=== PATIENT | male | born 1930 | race Caucasian/White ===

== ENCOUNTER 2017-09-29 18:12 | Emergency (ER) | payer OTHER ==
[~2017-09-29] VITALS: Ht 185.4 cm; Wt 82.6 kg
[~2017-09-29 18:12] MED LIST: ASCO500C2; ASPI-13 PO; CHOL500045 PO; FERR324T18 PO; FINA5TAB4 PO; HYDR12.53 PO; HYDR25TA6 PO; HYDR50TA3 PO; LISI-170 PO; LISI30TA4 PO; METO25TA91 PO; SIMV20TA3 PO; SULF-169 PO; TAMS-11 PO; lisinopril PO
[2017-09-29] MEDS ORDERED: ACETAMINOPHEN 325 MG TABLET ONE (19:54)
[2017-09-29] MEDS ORDERED: ACETAMINOPHEN 325 MG TABLET PO ONE (20:00)
[2017-09-29 20:41] VITALS: BP 133/74
== END 2017-09-29 21:55 | disposition home or self-care (01) ==
LOC: ED 21:49
DX: S73.111A Iliofemoral ligament sprain of right hip, initial encounter (principal); E78.00 Pure hypercholesterolemia, unspecified; I10 Essential (primary) hypertension; W19.XXXA Unspecified fall, initial encounter; Y93.89 Activity, other specified; Y99.8 Other external cause status; Y92.099 Unspecified place in other non-institutional residence as the place of occurrence of the external cause
CPT/HCPCS: 72190; 99284

== ENCOUNTER → 2018-10-29 | Outpatient (CLI) | payer OTHER ==
[~2018-10-29] MED LIST changes: +HYDR12.517 PO; -HYDR12.53 PO
== END | disposition home or self-care (01) ==
LOC: CFH 09:36
PROVIDERS: ATTEND Internal Medicine Cardiovascular Disease
DX: I07.1 Rheumatic tricuspid insufficiency (principal); I10 Essential (primary) hypertension; I25.10 Atherosclerotic heart disease of native coronary artery without angina pectoris; Z95.1 Presence of aortocoronary bypass graft; Z87.891 Personal history of nicotine dependence
CPT/HCPCS: 93306

== ENCOUNTER 2019-02-03 12:41 | Emergency (ER) | payer MEDICARE, OTHER ==
[~2019-02-03] VITALS: Ht 182.9 cm; Wt 93.6 kg
[2019-02-03 13:06] VITALS: BP 138/85
[2019-02-03 13:28] LABS: BASOPHILS # (AUTO) 0.01 x10^3/uL (0-0.1); BASOPHILS % (AUTO) 0 % (0-1); EOSINOPHILS # (AUTO) 0.13 x10^3/uL (0-0.4); EOSINOPHILS % (AUTO) 2 % (1-7); LYMPHOCYTES # (AUTO) 1.78 x10^3/uL (1-3.4); LYMPHOCYTES % (AUTO) 24 % (22-44); MD NO; MEAN CORPUSCULAR HEMOGLOBIN 33.5 pg (27.5-34.5); MEAN CORPUSCULAR HGB CONC 33.9 g/dL (33.2-36.2); MEAN CORPUSCULAR VOLUME 98.6 fL (81-97); MEAN PLATELET VOLUME 8.8 fL (7.4-10.4); MONOCYTES # (AUTO) 0.69 x10^3/uL (0.2-0.8); MONOCYTES % (AUTO) 9 % (2-9); NEUTROPHILS # (AUTO) 4.93 x10^3/uL (1.8-6.8); NEUTROPHILS % (AUTO) 65 % (42-75); PLATELET COUNT 173 x10^3/uL (130-400); RED BLOOD COUNT 4.14 x10^6/uL (4.38-5.82)
[2019-02-03] MEDS ORDERED: SODIUM CHLORIDE FLUSH 10ML SYR IVF ONE (13:30)
--- NOTE | 2019-02-03 13:31 | NUR ---
LAMP DEVELOPER: PT TO ROOM FROM LOBBY
[2019-02-03 13:40] LABS: ALBUMIN 3.5 g/dL (3.4-5.0); ANION GAP 4 mmol/L (5-15); CALCIUM 9.1 mg/dL (8.5-10.1); CHLORIDE 110 mmol/L (98-107)
[2019-02-03 13:43] LABS: ALANINE AMINOTRANSFERASE 15 U/L (12-78); ALKALINE PHOSPHATASE 93 U/L (45-117); BILIRUBIN,TOTAL 0.5 mg/dL (0.2-1.0); TOTAL PROTEIN 7.2 g/dL (6.4-8.2)
[2019-02-03 14:07] LABS: MICROSCOPIC AUTO
[2019-02-03 14:37] LABS: CULTURE INDICATED? YES
--- NOTE | 2019-02-03 14:40 | NUR ---
BLADDER SCAN PERFORMED. 174 ML AND PROVIDER MADE AWARE.
[2019-02-03] MEDS ORDERED: CEFTRIAXONE 1,000 MG IM ONE (16:30)
[2019-02-03] MEDS ORDERED: CEFTRIAXONE 1,000 MG ONE (16:35)
--- NOTE | 2019-02-03 16:38 | NUR ---
PT MEDICATED PER EMAR W/ ABX. PT AWARE OF OBS PERIOD AND EDUCATED ON S/S OF RXN. PT REQUESTING DC. DC EDUCATION PROVIDED, PT DEMONSTRATES UNDERSTANDING. PT AMBULATED STEADILY USING OWN CANE TO DC WITH DAUGHTER. DAUGHTER TO TRANSPORT HOME.
[2019-02-07] MEDS ORDERED: ALLO100T64 PO (21:19)
[2019-02-07] MEDS ORDERED: APIX2.5T PO (21:19)
== END 2019-02-03 17:05 | disposition home or self-care (01) ==
LOC: ED 16:17
DX: N30.00 Acute cystitis without hematuria (principal); N40.0 Benign prostatic hyperplasia without lower urinary tract symptoms; I25.2 Old myocardial infarction; I12.9 Hypertensive chronic kidney disease with stage 1 through stage 4 chronic kidney disease, or unspecified chronic kidney disease; N18.9 Chronic kidney disease, unspecified
CPT/HCPCS: 36415; 80053; 81001; 85025; 87077; 87086; 87186; 96372; 99284; J0696

== ENCOUNTER 2019-02-10 19:05 | Emergency (ER) | payer MEDICARE ==
[~2019-02-10] VITALS: Ht 182.9 cm; Wt 96.6 kg
[~2019-02-10 19:05] MED LIST changes: +ALLO100T64 PO; +APIX2.5T PO
[2019-02-10 19:19] VITALS: BP 145/82
[2019-02-10] MEDS ORDERED: FOSFOMYCIN 3 GM PACKET PO ONE (19:30)
== END 2019-02-10 20:24 | disposition home or self-care (01) ==
LOC: ED 20:18
DX: N39.0 Urinary tract infection, site not specified (principal); E78.00 Pure hypercholesterolemia, unspecified; I10 Essential (primary) hypertension; I25.2 Old myocardial infarction
CPT/HCPCS: 99282

== ENCOUNTER 2019-02-13 17:19 | Emergency (ER) | payer MEDICARE ==
[~2019-02-13] VITALS: Ht 185.4 cm; Wt 92.9 kg
[2019-02-13 17:27] VITALS: BP 139/84
[2019-02-13] MEDS ORDERED: FOSFOMYCIN 3 GM PACKET ONE (17:54)
[2019-02-13] MEDS ORDERED: FOSFOMYCIN 3 GM PACKET PO ONE (18:00)
== END 2019-02-13 18:15 | disposition home or self-care (01) ==
LOC: ED 18:09
DX: N39.0 Urinary tract infection, site not specified (principal); E78.00 Pure hypercholesterolemia, unspecified; I25.2 Old myocardial infarction; Z87.438 Personal history of other diseases of male genital organs
CPT/HCPCS: 99282